=== PATIENT | female | born 1960 | race Caucasian/White ===

== ENCOUNTER 2024-02-04 08:56 | Day surgery (SDC) | payer BC ==
[~2024-02-04 08:56] MED LIST: Lactated Ringers 1,000 ML IV SCH
[2024-02-04] MEDS: Lactated Ringers 1,000 ML IV SCH (09:10)
[2024-02-04 11:53] VITALS: BP 154/75; PULSE 68
== END 2024-02-04 12:25 | disposition home or self-care (01) ==
LOC: VM.SDS 08:56
PROVIDERS: ATTEND Family Medicine
DX: K31.89 Other diseases of stomach and duodenum (principal); K52.9 Noninfective gastroenteritis and colitis, unspecified; R59.9 Enlarged lymph nodes, unspecified; R63.4 Abnormal weight loss; I10 Essential (primary) hypertension; E78.00 Pure hypercholesterolemia, unspecified; F32.A Depression, unspecified; F41.9 Anxiety disorder, unspecified; Z68.22 Body mass index [BMI] 22.0-22.9, adult; Z79.899 Other long term (current) drug therapy
CPT/HCPCS: 00813; J7120